=== PATIENT | male | born 1985 ===

== ENCOUNTER 2019-09-23 12:02 | Emergency (ER) | payer OTHER ==
[~2019-09-23] VITALS: Ht 167.6 cm; Wt 98.0 kg
[2019-09-23] MEDS ORDERED: TYLENOL325 MG (12:13)
== END 2019-09-23 14:58 | disposition home or self-care (01) ==
LOC: ER 12:02
DX: S82.492A Other fracture of shaft of left fibula, initial encounter for closed fracture (principal); W18.39XA Other fall on same level, initial encounter; Y93.89 Activity, other specified; Y92.69 Other specified industrial and construction area as the place of occurrence of the external cause; Y99.8 Other external cause status